=== PATIENT | female | born 1945 | race Caucasian/White ===

== ENCOUNTER 2017-07-08 09:15 | Day surgery (SDC) | payer OTHER, MEDICARE ==
[2017-07-04 14:38] VITALS: BMI 24.1
[2017-07-08] MEDS ORDERED: LIDOCAINE HCL/PF 2% SDV 5ML VIAL ONE (10:19)
[2017-07-08] MEDS ORDERED: PROPOFOL 20 ML ONE ×2 (10:19)
[2017-07-08 11:05] VITALS: TEMP 97.9
[2017-07-08 11:58] VITALS: BP 121/70; PULSE 63
--- NOTE | 2017-07-10 17:10 | PATH ---
Surgical Pathology Report Patient Name: SANGEETHA AGUIAR [facility]. Rec. #: [id number] /Age/Gender: 1945 (Age: 71) / F Account: [id number] Location: [facility]-ENDOSCOPY Taken: 07/08/2017 Received: 07/08/2017 Reported: 07/10/2017 Physicians: Gian Mclaughlin M.D. Specimen(s) Received A: DUODENUM B: ANTRUM Clinical History Preoperative diagnosis: GERD, history of polyps Postoperative diagnosis: Rule out celiac disease, gastritis Final Diagnosis A. DUODENUM, BIOPSY: DUODENAL MUCOSA WITH NO PATHOLOGIC FINDINGS. Note: Features suggestive of celiac disease are not identified in this biopsy. B. ANTRUM, BIOPSY: MODERATE CHRONIC ACTIVE GASTRITIS. IMMUNOSTAIN SHOWS NUMEROUS H. PYLORI ORGANISMS. Electronically Signed Colleen Schmidt M.D. Gross Description A. Received in formalin, labeled "duodenum" are 2 thakur, irregular portions of soft tissue averaging 0.3 cm. in greatest dimension. The specimens are submitted in toto in one cassette. B. Received in formalin, labeled "antrum" are 2 thakur, irregular portions of soft tissue averaging 0.2 cm. in greatest dimension. The specimens are submitted in toto in one cassette. 07/09/201707/09/2017
== END 2017-07-08 11:45 | disposition home or self-care (01) ==
LOC: FASU-ENDO 09:15
PROVIDERS: ATTEND Internal Medicine Gastroenterology
PROC: 0DB68ZX Excision of Stomach, Via Natural or Artificial Opening Endoscopic, Diagnostic (ICD-10-PCS; 2017-07-08)
PROC: 0DJD8ZZ Inspection of Lower Intestinal Tract, Via Natural or Artificial Opening Endoscopic (ICD-10-PCS; principal; 2017-07-08 10:18)
PROC: 0DB98ZX Excision of Duodenum, Via Natural or Artificial Opening Endoscopic, Diagnostic (ICD-10-PCS; 2017-07-08 10:18)
DX: Z86.010 Personal history of colon polyps (principal); K29.50 Unspecified chronic gastritis without bleeding
CPT/HCPCS: 88305-TC; 88342-TC

== ENCOUNTER 2019-01-18 11:20 | Emergency (ER) | payer OTHER, MEDICARE ==
[2019-01-18 11:39] VITALS: TEMP 99.6; BMI 24.1
[2019-01-18] MEDS ORDERED: ONDANSETRON 4 MG/2 ML VIAL IVPB PRN (12:38)
[2019-01-18] MEDS ORDERED: ACETAMINOPHEN 1000 MG/100 ML VIAL (NON FORMULARY) IVPB ONE (12:38)
--- NOTE | 2019-01-18 12:42 | PDOC ---
History of Present Illness - General Chief Complaint: Pain, Acute Stated Complaint: ABD PAIN Time Seen by Provider: 01/18/19 12:01 - History of Present Illness Initial Comments: 01/18/19 15:42 73y/o F hx of abdominal surgeries (hysterectomy, cholecystectomy and oopherectomy), htn, atrophic kidney, trigeminal neuralgia s/p craniotyom, sarcoidoisis, cataracts, glaucoma and basal cell carcinoma. She presents to the ED with 1mth of abdominal pain that worsened overnight in intensity. The pain is diffuse and radiates to her back and is 10/10 in severity. She couldn't identify any relieving or exacerbating factors. The pain has been accompanied by nausea and vomiting x5 or more since yesterday (non-bloody) She endorsed tenesmus, dysuria, frequency. She denies fever, chills, hematuria, diarrhea, blood in her stools. Her last bowel movement was this morning at 5a.m Past History - Past Medical History Allergies/Adverse Reactions: Allergies Allergy/AdvReac Type Severity Reaction Status Date / Time Electrolyte-R Solution Allergy Intermediate Swelling Verified 01/18/19 11:28 [From Normosol-R] codeine [Codeine] Allergy Unknown Verified 01/18/19 11:28 dexamethasone [From Decadron] Allergy Unknown Verified 01/18/19 11:28 dexamethasone sod phosphate Allergy Unknown Verified 01/18/19 11:28 [From Decadron] erythromycin base Allergy Unknown Verified 01/18/19 11:28 [Erythromycin Base] guaifenesin Allergy Unknown Verified 01/18/19 11:28 [From Robitussin Chest Congestion] Iodinated Contrast Media Allergy Unknown Verified 01/18/19 11:28 [IV Dye, Iodine Containing Contrast ] morphine Allergy Unknown Verified 01/18/19 11:28 Penicillins Allergy Unknown Verified 01/18/19 11:28 phenazopyridine HCl Allergy Unknown Verified 01/18/19 11:28 [From Pyridium] sertraline HCl [From Zoloft] Allergy Unknown Verified 01/18/19 11:28 Sulfa (Sulfonamide Allergy Unknown Verified 01/18/19 11:28 Antibiotics) [Sulfa(Sulfonamide Antibiotics)] vancomycin Allergy Unknown Verified 01/18/19 11:28 Home Medications: Ambulatory Orders Acetaminophen/Caffeine/Butalb [Fioricet] 1 tab PO Q6H PRN 11/26/12 Amlodipine Besylate [Norvasc] 10 mg PO PRN 11/26/12 Candesartan Cilexetil [Atacand] 32 mg PO DAILY 11/26/12 Cyanocobalamin Vit B-12 Inj. [Redisol] 1,000 mcg IM MONTHLY 07/04/17 Diazepam [Valium] 5 mg PO DAILY PRN 07/04/17 Levothyroxine [Synthroid -] 75 mcg PO DAILY 07/08/17 Betaxolol HCl [Betoptic S] 1 drop OD BID 01/18/19 Anemia: No (LOW B12) Asthma: No Cancer: Yes (THYROID 2014) 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) CVA: No COPD: No Dementia: No Diabetes: No GI Disorders: No (R/O HIATAL HERNIA) Disorders: Yes (HX UTIs) HTN: Yes Hypercholesterolemia: No Liver Disease: No Seizures: Yes (cancer) Thyroid Disease: Yes - Surgical History Abdominal Surgery: No Appendectomy: No Cardiac Surgery: No Cholecystectomy: Yes Lung Surgery: No Neurologic Surgery: Yes (LAMINECTOMY X2) Orthopedic Surgery: No - Immunization History Td Vaccination: Yes TDAP Vaccination: Yes Immunization Up to Date: No - Suicide/Smoking/Psychosocial Hx Smoking Status: No Smoking History: Never smoked Years of Tobacco Use: 0 Have you smoked in the past 12 months: No Number of Cigarettes Smoked Daily: 0 Cigars Per Day: 0 Information on smoking cessation initiated: No Hx Alcohol Use: No Drug/Substance Use Hx: No Substance Use Type: None Review of Systems - Review of Systems Constitutional: No: Chills, Fever HEENTM: No: Eye Pain, Blurred Vision Respiratory: No: Cough, Shortness of Breath Cardiac (ROS): No: Chest Pain, Lightheadedness ABD/GI: Yes: Symptoms Reported : Yes: Burning, Dysuria Musculoskeletal: Yes: Back Pain Integumentary: No: Change in Color, Dryness Neurological: No: Headache *Physical Exam - Vital Signs Last Vital Signs Temp Pulse Resp BP Pulse Ox 99.6 F 99 H 18 151/73 99 01/18/19 11:28 01/18/19 11:28 01/18/19 11:28 01/18/19 11:28 01/18/19 11:28 - Physical Exam Neck: positive: Trachea midline, Supple Respiratory/Chest: positive: Lungs Clear, Normal Breath Sounds. negative: Respiratory Distress, Crackles, Rales, Wheezing Cardiovascular: positive: Regular Rhythm, Regular Rate, S1, S2. negative: JVD Vascular Pulses: Dorsalis-Pedis (R): 2+, Doralis-Pedis (L): 2+ Gastrointestinal/Abdominal: positive: Normal Bowel Sounds, Flat, Soft, Tenderness, Other (tenderness diffusely across the abdomen). negative: Pulsatile Mass, Protuberent, Distended Musculoskeletal: positive: Normal Inspection. negative: CVA Tenderness Extremity: positive: Normal Capillary Refill, Normal Inspection, Normal Range of Motion Integumentary: positive: Normal Color, Dry, Warm Neurologic: positive: Fully Oriented, Alert, Normal Mood/Affect, Normal Response ED Treatment Course - LABORATORY CBC & Chemistry Diagram: 01/18/19 13:00 01/18/19 13:00 Medical Decision Making - Medical Decision Making 01/18/19 15:49 73y/o F hx of abdominal surgeries (hysterectomy, cholecystectomy and oopherectomy), htn, atrophic kidney, trigeminal neuralgia s/p craniotomy, sarcoidoisis, cataracts, glaucoma and basal cell carcinoma. Labs/Imaging Meds Elevated white count 12.2 Lipase 103 Lactate 2.2 urine 2+ ketones Pt given IV tylenol 1000mg for pain Grand daughter who accompanied pt. advised to stay with her to ensure her wellbeing and follow up with Dr. Cuevas strongly recommended. -If pt tolerates PO will discharge. - Pt tolerated PO discharged with instructions to follow up. *DC/Admit/Observation/Transfer Diagnosis at time of Disposition: Abdominal pain Qualifiers: Abdominal location: generalized Qualified Code(s): R10.84 - Generalized abdominal pain - Discharge Dispostion Disposition: HOME Condition at time of disposition: Stable Decision to Admit order: No - Referrals Referrals: Bharath Cuevas MD [Primary Care Provider] - - Patient Instructions Printed Discharge Instructions: DI for Abdominal Pain-Adult Additional Instructions: You were seen in the ER for abdominal pain. The tests and imaging we did do show any concerning findings at this time. Follow up with your primary care provider Dr. Varma tomorrow and let him know you were in the ER. RETURN TO THE EMERGENCY ROOM immediately should you feel worse in any way or have any of the following symptoms: increasing or different abdominal pain, persistent vomiting, fevers or shaking chills. Please return to the emergency department for a recheck in 8-12 hours if the pain is persistent or worse so we can re-evaluate you and ensure that you are not developing a problem that would require surgery or hospitalization. - Post Discharge Activity
[2019-01-18] MEDS ORDERED: ONDANSETRON 4 MG/2 ML VIAL ONE (12:49)
[2019-01-18] MEDS ORDERED: ACETAMINOPHEN INJECTION 100 ML IVPB ONE (12:49)
[2019-01-18 13:17] LABS: BASO % 0.5 % (0-2.0); HEMOGLOBIN 14.1 GM/dL (10.7-15.3); LYMPH % 5.6 % (8-40); MCH 31.8 pg (25.7-33.7); MCHC 34.3 g/dl (32.0-36.0); MEAN CELL VOLUME 92.7 fl (80-96); MEAN PLT VOLUME 7.8 fl (7.5-11.1); MONO % 5.2 % (3.8-10.2); NEUT % 88.7 % (42.8-82.8); PLATELET COUNT 195 K/MM3 (134-434); RBC 4.42 M/mm3 (3.60-5.2); RDW 12.9 % (11.6-15.6); WHITE BLOOD COUNT 12.2 K/mm3 (4.0-10.0)
[2019-01-18 13:19] LABS: PH,URINE 6.5 (5.0-8.0); URINE APPEARANCE Clear; URINE BILIRUBIN Negative (NEGATIVE); URINE COLOR Yellow; URINE GLUCOSE (UA) Negative (NEGATIVE); URINE KETONE Negative (NEGATIVE); URINE LEUK ESTERASE Negative (NEGATIVE); URINE NITRITE Negative (NEGATIVE); URINE PROTEIN Trace (NEGATIVE); URINE UROBILINOGEN 0.2 mg/dL (0.2-1.0)
[2019-01-18 13:55] LABS: ALBUMIN 4.5 g/dl (3.4-5.0); BILIRUBIN,TOTAL 0.8 mg/dL (0.2-1); BLOOD UREA NITROGEN 11.5 mg/dL (7-18); CALCIUM 8.2 mg/dL (8.5-10.1); CREATININE 0.8 mg/dL (0.55-1.3); POTASSIUM 3.6 mmol/L (3.5-5.1); TOT PROT 7.6 g/dl (6.4-8.2)
--- NOTE | 2019-01-18 14:18 | PDOC ---
Documentation entered by Julissa Herrera SCRIBE, acting as scribe for Bozena Griffin MD. Bozena Griffin MD: This documentation has been prepared by the Javier arce Nirvannie, SCRIBE, under my direction and personally reviewed by me in its entirety. I confirm that the documentation accurately reflects all work, treatment, procedures, and medical decision making performed by me. Attending Attestation - Resident Resident Name: ZackaryShashank - ED Attending Attestation I have performed the following: I have examined & evaluated the patient, The case was reviewed & discussed with the resident, I agree w/resident's findings & plan, Exceptions are as noted - HPI HPI: 01/18/19 12:56 The patient is a 73 year old female, with a significant past medical history of HTN, anemia, atrophic kidney, trigeminal neuralgia (s/p craniotomy 2005), sarcoidosis, cataracts, glaucoma, and basal cell (face), who presents to the emergency department with, worsening, constant abdominal pain. As per patient, her symptoms have been ongoing for the past month and acutely worsened today. She describes her pain diffuse and worsened in the epigastrum with an associated nausea and approximately 4 episodes of bilious, nonbloody emesis. Patient endorses greater than one month of dysuria and urinary frequency which is normally alleviated with unknown antibiotics but, reoccurs shortly after the course of treatment has concluded. She denies recent chest pain or shortness of breath. Allergies: As per nursing notes. Past surgical history: Hysterectomy, cholecystectomy, laminectomy, oophorectomy , craniotomy (2005), thyroid surgery. Primary Care Physician: Dr. Cuevas - Physicial Exam PE: 01/18/19 12:56 GENERAL: Awake, alert, and fully oriented, in no acute distress HEAD: No signs of trauma NECK: Normal ROM, supple, no lymphadenopathy, JVD, or masses LUNGS: Breath sounds equal, clear to auscultation bilaterally. No wheezes, and no crackles HEART: Regular rate and rhythm, normal S1 and S2, no murmurs, rubs or gallops ABDOMEN: +Epigastric guarding. Soft, normoactive bowel sounds. No rebound. No masses BACK: +Left CVA tenderness. EXTREMITIES: Normal range of motion, no edema. No clubbing or cyanosis. No cords, erythema, or tenderness NEUROLOGICAL: Cranial nerves II through XII grossly intact. Normal speech SKIN: Warm, Dry, normal turgor, no rashes or lesions noted. - Medical Decision Making 01/18/19 13:49 Pt presents to the ED complaining of diffuse abdominal pain, dysuria, nausea and vomiting. + diffuse tenderness with slight guarding and no rebound. Differential includes pyelonephritis, diverticulitis, less likely mesenteric ischemia, less likely intraabdominal abscess. Will check labs, UA and CT abdomen pelvis to rule out
[2019-01-18] MEDS ORDERED: KETOROLAC TROMETHAMINE 15 MG/ML VIAL IVPUSH ONE (15:15)
[2019-01-18] MEDS ORDERED: KETOROLAC TROMETHAMINE 15 MG/ML VIAL ONE (15:23)
[2019-01-18 16:24] VITALS: BP 109/74; PULSE 94
--- NOTE | 2019-01-19 06:45 | EKG ---
Test Reason : Blood Pressure : / mmHG Vent. Rate : 090 BPM Atrial Rate : 090 BPM P-R Int : 156 ms QRS Dur : 086 ms QT Int : 390 ms P-R-T Axes : 006 003 036 degrees QTc Int : 477 ms SINUS RHYTHM WITH PREMATURE ATRIAL COMPLEXES OTHERWISE NORMAL ECG WHEN COMPARED WITH ECG OF 11-JUL-2015 15:45, PREMATURE ATRIAL COMPLEXES ARE NOW PRESENT Confirmed by STANLEY CORDOBA, FABIO ([id number]) on 01/19/2019 6:45:09 AM Referred By: Confirmed By:FABIO ANGEL MD
== END 2019-01-18 16:23 | disposition home or self-care (01) ==
LOC: JER 11:20
PROC: 3E033NZ Introduction of Analgesics, Hypnotics, Sedatives into Peripheral Vein, Percutaneous Approach (ICD-10-PCS; principal; 2019-01-18)
DX: R10.84 Generalized abdominal pain (principal); I10 Essential (primary) hypertension; H40.9 Unspecified glaucoma; Z85.850 Personal history of malignant neoplasm of thyroid; Z87.440 Personal history of urinary (tract) infections; Z88.0 Allergy status to penicillin; Z88.1 Allergy status to other antibiotic agents; Z88.2 Allergy status to sulfonamides; Z88.8 Allergy status to other drugs, medicaments and biological substances
CPT/HCPCS: 36415; 74176-TC; 80053; 81003; 83605; 83690; 85025; 87086; 93005; 93010; 96374; 99284-25; J0131

== ENCOUNTER 2020-02-08 17:24 | Emergency (ER) | payer OTHER, MEDICARE ==
[2020-02-08 17:41] VITALS: TEMP 98; BMI 24.9
[2020-02-08] MEDS ORDERED: ACETAMINOPHEN 500 MG TABLET (FP) PO ONE (17:46)
--- NOTE | 2020-02-08 17:49 | PDOC ---
History of Present Illness - General Chief Complaint: Pain, Acute Stated Complaint: fall Time Seen by Provider: 02/08/20 17:37 History Source: Patient Exam Limitations: No Limitations - History of Present Illness Initial Comments: 02/08/20 17:49 74y F with PMH of HTN, Hypothyroidism, Lumbar disc laminectomy presenting to the ER with L hip/buttock pain after slipping down 2 steps at home. Daughter at bedside states that patient was almost down the stairs and she heard the fall, turned around and saw patient sitting on the floor. Pt states that her socks slipped on the wooden steps, she slid sideways and had pain in the L hip/buttock. She has been ambulatory since the fall but has difficulty changing positions due to the pain. Denies LOC, hitting her head, neck pain, back pain, chest pain, abdominal pain, n/v, numbness, weakness. She is not on AC. PMD: Faith PMH: see hpi PSH: see hpi Meds: see med list Allergies: see allergy list Past History - Medical History Allergies/Adverse Reactions: Allergies Allergy/AdvReac Type Severity Reaction Status Date / Time Electrolyte-R Solution Allergy Intermediate Swelling Verified 02/08/20 17:25 [From Normosol-R] codeine [Codeine] Allergy Unknown Verified 02/08/20 17:25 dexamethasone [From Decadron] Allergy Unknown Verified 02/08/20 17:25 dexamethasone sod phosphate Allergy Unknown Verified 02/08/20 17:25 [From Decadron] erythromycin base Allergy Unknown Verified 02/08/20 17:25 [Erythromycin Base] guaifenesin Allergy Unknown Verified 02/08/20 17:25 [From Robitussin Chest Congestion] Iodinated Contrast Media Allergy Unknown Verified 02/08/20 17:25 [IV Dye, Iodine Containing Contrast ] morphine Allergy Unknown Verified 02/08/20 17:25 Penicillins Allergy Unknown Verified 02/08/20 17:25 phenazopyridine HCl Allergy Unknown Verified 02/08/20 17:25 [From Pyridium] sertraline HCl [From Zoloft] Allergy Unknown Verified 02/08/20 17:25 Sulfa (Sulfonamide Allergy Unknown Verified 02/08/20 17:25 Antibiotics) [Sulfa(Sulfonamide Antibiotics)] vancomycin Allergy Unknown Verified 02/08/20 17:25 Home Medications: Ambulatory Orders Acetaminophen/Caffeine/Butalb [Fioricet] 1 tab PO Q6H PRN 11/26/12 Amlodipine Besylate [Norvasc] 10 mg PO PRN 11/26/12 Candesartan Cilexetil [Atacand] 32 mg PO DAILY 11/26/12 Cyanocobalamin Vit B-12 Inj. [Redisol] 1,000 mcg IM MONTHLY 07/04/17 Diazepam [Valium] 5 mg PO DAILY PRN 07/04/17 Levothyroxine [Synthroid -] 75 mcg PO DAILY 07/08/17 Betaxolol HCl [Betoptic S] 1 drop OD BID 01/18/19 Anemia: No (LOW B12) Asthma: No Cancer: Yes (THYROID 2014) 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) CVA: No COPD: No Dementia: No Diabetes: No GI Disorders: No (R/O HIATAL HERNIA) Disorders: Yes (HX UTIs) HTN: Yes Hypercholesterolemia: No Liver Disease: No Seizures: Yes (cancer) Thyroid Disease: Yes - Surgical History Abdominal Surgery: No Appendectomy: No Cardiac Surgery: No Cholecystectomy: Yes Lung Surgery: No Neurologic Surgery: Yes (LAMINECTOMY X2) Orthopedic Surgery: No - Reproductive History Is Patient Now?: No - Immunization History Td Vaccination: Yes TDAP Vaccination: Yes Immunization Up to Date: No - Psycho-Social/Smoking History Smoking Status: No Smoking History: Never smoked Years of Tobacco Use: 0 Have you smoked in the past 12 months: No Number of Cigarettes Smoked Daily: 0 Cigars Per Day: 0 - Substance Abuse Hx (Audit-C & DAST Scrn) How often the patient has a drink containing alcohol: Never Score: In Men: 4 or > Positive; In Women: 3 or > Positive: 0 Screen Result (Pos requires Nsg. Audit-10AR): Negative In the last yr the pt used illegal drug/Rx for NonMed reason: No Score: Yes response is considered Positive: 0 Screen Result (Positive result requires Nsg. DAST-10): Negative Review of Systems - Review of Systems Constitutional: No: Symptoms Reported HEENTM: No: Symptoms Reported Respiratory: No: Symptoms reported Cardiac (ROS): No: Symptoms Reported ABD/GI: No: Symptoms Reported : No: Symptoms Reported Musculoskeletal: Yes: See HPI Integumentary: No: Symptoms Reported Neurological: No: Symptoms reported *Physical Exam - Vital Signs Last Vital Signs Temp Pulse Resp BP Pulse Ox 98 F 76 19 188/84 H 100 02/08/20 17:25 02/08/20 17:25 02/08/20 17:25 02/08/20 17:25 02/08/20 17:25 - Physical Exam General Appearance: Yes: Nourished, Appropriately Dressed. No: Apparent Distress HEENT: positive: EOMI, LILLIAN Neck: positive: Trachea midline, Supple Respiratory/Chest: positive: Lungs Clear, Normal Breath Sounds. negative: Chest Tender, Labored Respiration, Rales, Rhonchi, Stridor, Wheezing Cardiovascular: positive: Regular Rhythm, Regular Rate, S1, S2. negative: Edema, JVD, Murmur Vascular Pulses: Dorsalis-Pedis (R): 2+, Doralis-Pedis (L): 2+ Gastrointestinal/Abdominal: positive: Normal Bowel Sounds, Soft. negative: Tender, Guarding, Rebound Musculoskeletal: positive: Muscle Spasm, Other (sacral tenderness, L inguinal tenderness and lateral thigh tenderness ). negative: CVA Tenderness, Decreased Range of Motion, Vertebral Tenderness Extremity: positive: Normal Capillary Refill, Normal Range of Motion, Pelvis Stable. negative: Pedal Edema, Swelling, Calf Tenderness Integumentary: positive: Normal Color, Dry, Warm Neurologic: positive: tobacco hanger II-XII NML intact, Fully Oriented, Alert, Normal Mood/Affect, Normal Response, Motor Strength 5/5 ED Treatment Course - RADIOLOGY Radiology Studies Ordered: Category Date Time Status HIP & PELVIS-LEFT [RAD] Stat Radiology 02/08/20 17:45 Ordered Medical Decision Making - Medical Decision Making 02/08/20 17:53 74y F with pmh of htn, hypothyroidism, laminectomy presenting to the ER for slip and fall with L hip/buttock pain. vitals: hypertensive otherwise wnl pe: L hip tenderness, decreased rom 2/2 pain, full sensation, full strength. no lacerations, no spinal tenderness, normal neurological exam. ddx includes hip fracture, dislocation, sprain, coccyx injury, sacral injury. pt does not require head or c spine ct at this time given no loc or head injury, pt is able to recall event, no syncope, no lacerations, not on ac, normal neurological exam. -xray of pelvis and hip. 02/08/20 18:42 pt is ambulatory. no fractures on xray per my read, arthiritic changes. will dc pt home, given dc instructions, advised to f/u with pmd. pt lives alone but can stay with her daughter. return precautions provided. Discharge - Discharge Information Problems reviewed: Yes Clinical Impression/Diagnosis: Fall (on) (from) other stairs and steps, initial encounter Condition: Good Disposition: HOME - Admission No - Follow up/Referral Referrals: Bharath Cuevas MD [Primary Care Provider] - - Patient Discharge Instructions Additional Instructions: You were seen in the ER today for a slip from the stairs. You do not have a fracture. I recommend Tylenol for the pain, you can take up to 1,000mg every 6 hours (4 times a day ) as needed for the pain. do not take more than 4,000mg in a day. You can also do a warm towel or heating pad for the pain. Try to start moving early as tolerated. Please follow up with your doctor this week in regards to your ED visit. Come back to the ER if the pain worsens, you have problems with urination, have numbness in the legs or weakness of the legs, you are unable to walk or if any new or concerning symptom develops. Thank you - Post Discharge Activity
[2020-02-08] MEDS ORDERED: ACETAMINOPHEN 500 MG TABLET (FP) ONE (17:58)
--- NOTE | 2020-02-08 18:09 | PDOC ---
Attending Attestation - Resident Resident Name: Perlita Moore - ED Attending Attestation I have performed the following: I have examined & evaluated the patient, The case was reviewed & discussed with the resident, I agree w/resident's findings & plan, Exceptions are as noted - HPI HPI: 02/08/20 18:03 74 yo F p/w L hip and buttocks pain s/p mechanical slip and fall down 2 stairs shortly before arrival. States she was walking down the stairs in socks and she slipped down 2 stairs landing on her L buttocks. Her daughter was walking in front of her and heard her and tried to grab her and prevent her from sliding down more stairs. Patient denies head trauma or LOC. Denies any other injuries or complaints. Not on any a/c. - Physicial Exam PE: 02/08/20 18:05 General: well appearing HEENT: NCAT, no racoon eyes, no davis sign Neck: supple, FROM, no midline tenderness Back: no midline or paraspinal tenderness Extremities: mild L hip/L lateral low back ttp, FROM, strength 5/5 LE's Neuro: awake, alert, responds to questions appropriately, speech fluent, face symmetric, gait steady - Medical Decision Making 02/08/20 18:07 74 yo F p/w L hip/buttocks pain s/p mechanical slip and slide down 2 stairs, ambulatory but with some discomfort. Likely contusion/sprain however given age will get xray to r/o fx. Plan: -xray pelvis/L hip -pain control -reassess, if imaging unremarkable will d/c home with return precautions, recommend tylenol at home as needed for pain and PMD f/u This clinical encounter is taking place during a federal and state health care emergency attributable to the novel Velez Virus pandemic. The [employer] of the Department of Health and Human Services has declared, pursuant to the Public Health Service Act 319F-3 (42 U.S.C. 247d-6d), that a covered persons activities related to medical countermeasures against COVID-19 will be immune from liability under Federal and State law. Discharge - Discharge Information Problems reviewed: Yes Clinical Impression/Diagnosis: Fall (on) (from) other stairs and steps, initial encounter Condition: Stable - Follow up/Referral Referrals: Bharath Cuevas MD [Primary Care Provider] - - Patient Discharge Instructions - Post Discharge Activity
[2020-02-08 18:43] VITALS: BP 170/90; PULSE 64
== END 2020-02-08 18:50 | disposition home or self-care (01) ==
LOC: FER 17:24
DX: M25.552 Pain in left hip (principal)
CPT/HCPCS: 73523-TC-FY; 99284-25

== ENCOUNTER 2020-03-11 17:37 | Emergency (ER) | payer OTHER, MEDICARE ==
--- NOTE | 2020-03-11 18:25 | PDOC ---
History of Present Illness - General Chief Complaint: Pain, Acute Stated Complaint: RIGHT FLANK PAIN Time Seen by Provider: 03/11/20 18:25 History Source: Patient Exam Limitations: No Limitations - History of Present Illness Initial Comments: 03/11/20 18:33 [id number] with h/o multiple UTI, multiple kidney stones, cholecystectomy, appendectomy, HTN, anemia, atrophic kidney, thyroid cancer s/p thyroidectomy, trigeminal neuralgia (s/p craniotomy 2005), sarcoidosis, cataracts, glaucoma, and basal cell carcinoma of the face, who p/w right flank pain on the same side as her existing kidney, radiating to the RLQ. She notes dysuria. Denies f/c/n/v/d/c, black/bloody stool, hematuria, or other symptoms. Past History - Medical History Allergies/Adverse Reactions: Allergies Allergy/AdvReac Type Severity Reaction Status Date / Time Electrolyte-R Solution Allergy Intermediate Swelling Verified 03/11/20 18:33 [From Normosol-R] codeine [Codeine] Allergy Unknown Verified 03/11/20 18:33 dexamethasone [From Decadron] Allergy Unknown Verified 03/11/20 18:33 dexamethasone sod phosphate Allergy Unknown Verified 03/11/20 18:33 [From Decadron] erythromycin base Allergy Unknown Verified 03/11/20 18:33 [Erythromycin Base] guaifenesin Allergy Unknown Verified 03/11/20 18:33 [From Robitussin Chest Congestion] Iodinated Contrast Media Allergy Unknown Verified 03/11/20 18:33 [IV Dye, Iodine Containing Contrast ] morphine Allergy Unknown Verified 03/11/20 18:33 Penicillins Allergy Unknown Verified 03/11/20 18:33 phenazopyridine HCl Allergy Unknown Verified 03/11/20 18:33 [From Pyridium] sertraline HCl [From Zoloft] Allergy Unknown Verified 03/11/20 18:33 Sulfa (Sulfonamide Allergy Unknown Verified 03/11/20 18:33 Antibiotics) [Sulfa(Sulfonamide Antibiotics)] vancomycin Allergy Unknown Verified 03/11/20 18:33 fluorescein Allergy Verified 03/11/20 18:35 iodine Allergy Verified 03/11/20 18:33 Home Medications: Ambulatory Orders Acetaminophen/Caffeine/Butalb [Fioricet] 1 tab PO Q6H PRN 11/26/12 Amlodipine Besylate [Norvasc] 10 mg PO PRN 11/26/12 Candesartan Cilexetil [Atacand] 32 mg PO DAILY 11/26/12 Levothyroxine [Synthroid -] 75 mcg PO DAILY 07/08/17 Anemia: No (LOW B12) Asthma: No Cancer: Yes (THYROID 2014) 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) CVA: No COPD: No Dementia: No Diabetes: No GI Disorders: No (R/O HIATAL HERNIA) Disorders: Yes (HX UTIs) HTN: Yes Hypercholesterolemia: No Liver Disease: No Seizures: Yes (cancer) Thyroid Disease: Yes - Surgical History Abdominal Surgery: No Appendectomy: No Cardiac Surgery: No Cholecystectomy: Yes Lung Surgery: No Neurologic Surgery: Yes (LAMINECTOMY X2) Orthopedic Surgery: No - Immunization History Td Vaccination: Yes TDAP Vaccination: Yes Immunization Up to Date: No - Psycho-Social/Smoking History Smoking Status: No Smoking History: Never smoked Years of Tobacco Use: 0 Have you smoked in the past 12 months: No Number of Cigarettes Smoked Daily: 0 Cigars Per Day: 0 Review of Systems - Review of Systems Able to Perform ROS?: Yes Comments:: GEN: no fever, chills, malaise, or generalized weakness HEENT: no ear pain, congestion, sore throat, vision change, or eye pain CV: no chest pain, palpitations, lightheadedness, syncope, or edema RESP: no SOB, wheezing, or cough GI: no abdominal pain, nausea, vomiting, diarrhea, constipation, or rectal bleed : +right flank pain, no dysuria, hematuria, or discharge MSK: no muscle weakness or pain, no joint swelling or pain NEURO: no headache, vertigo, numbness, tingling, or focal weakness PSYCH: no SI, HI, or behavior change SKIN: no jaundice, rash, lesions, or unexplained bruises ROS otherwise negative except as noted in HPI *Physical Exam - Vital Signs Initial Vital Signs Temp Pulse Resp BP Pulse Ox 98.8 F 68 17 159/80 97 03/11/20 17:38 03/11/20 17:38 03/11/20 17:38 03/11/20 17:38 03/11/20 17:38 - Physical Exam GENERAL: well-appearing, A/Ox4, no distress, answers questions appropriately HEENT: PERRLA, EOMI, moist mucous membranes NECK/BACK: no midline ttp, no spinal step-off or deformity, no hematoma, full ROM, neck supple CARDIOVASCULAR: regular rate/rhythm, no MGR, strong peripheral pulses, capillary refill <2 seconds, extremities wwp, no edema LUNGS/RESPIRATORY: no respiratory distress, CTAB GI/ABDOMEN: symmetric [id number], normoactive BS, soft, no ttp, no midline pulsatile masses : minimal right CVA tenderness, no left CVA tenderness MSK/EXTREMITIES: no muscle atrophy, no acute deformity SKIN: warm and dry, no pallor, no jaundice, no rash, no pathologic-appearing bruising, no skin breakdown, no cuts, no lesions NEUROLOGICAL: GCS 15, CN II-XII grossly intact, 5/5 strength proximally and distally, no facial droop Heart Score/ECG Review #1 Sinus rhythm, rate 66, normal axis and intervals (QTc not grossly prolonged), no ST-T changes ED Treatment Course - LABORATORY CBC & Chemistry Diagram: 03/11/20 18:38 03/11/20 18:32 - ADDITIONAL ORDERS Additional order review: Laboratory Results 03/11/20 17:49 Urine Color Yellow Urine Appearance Clear Urine pH 5.5 Urine Protein Negative Urine Glucose (UA) Negative Urine Ketones Negative Urine Blood 1+ H Urine Nitrite Negative Urine Bilirubin Negative Urine Urobilinogen 0.2 Ur Leukocyte Esterase Negative Medical Decision Making - Medical Decision Making 03/14/20 10:05 [id number] with left nephrectomy, multiple prior UTI, multiple prior renal stones, who p/w right flank pain. Initial Vital Signs Temp Pulse Resp BP Pulse Ox 98.8 F 68 17 159/80 97 03/11/20 17:38 03/11/20 17:38 03/11/20 17:38 03/11/20 17:38 03/11/20 17:38 Most likely right renal stone, UTI, or pyelonephritis. Patient had appendectomy and cholecystectomy previously. Unlikely SBO as patient has been having BMs (reports they're normal). Possible MSK strain/sprain injury, less likely nerve impingement. Provider Orders Category Date Time Status SPIRAL- RENAL-STONE CT [CT] Stat CT Scan 03/11/20 18:31 Completed EKG [ELECTROCARDIOGRAM] [CARD] Stat Cardiology 03/11/20 18:31 Completed EKG needed NOW Care 03/11/20 18:31 Completed CBC WITH DIFFERENTIAL Stat Lab 03/11/20 18:38 Completed COMP METABOLIC PANEL Stat Lab 03/11/20 18:32 Completed MAGNESIUM Stat Lab 03/11/20 18:32 Completed TROPONIN I (DFP) Stat Lab 03/11/20 18:32 Completed UA ([facility] ONLY) Stat Lab 03/11/20 17:49 Completed URINE MICROSCOPIC (DILIP) Stat Lab 03/11/20 17:49 Completed Lab Results WBC 4.9 K/mm3 (4.0-10.8) 03/11/20 18:38 RBC 4.11 M/mm3 (3.60-5.2) 03/11/20 18:38 Hgb 12.9 GM/dl (10.7-15.3) 03/11/20 18:38 Hct 40.0 % (32.4-45.2) 03/11/20 18:38 MCV 97.4 fl (80-96) H 03/11/20 18:38 MCH 31.4 pg (25.7-33.7) 03/11/20 18:38 MCHC 32.2 g/dl (32.0-36.0) 03/11/20 18:38 RDW 12.9 % (11.6-15.6) 03/11/20 18:38 Plt Count 223 K/MM3 (134-434) 03/11/20 18:38 MPV 7.4 fl (7.5-11.1) L 03/11/20 18:38 Absolute Neuts (auto) 2.4 K/mm3 03/11/20 18:38 Neutrophils % 48.6 % (42.8-82.8) 03/11/20 18:38 Lymphocytes % 42.4 % (8-40) H 03/11/20 18:38 Monocytes % 7.5 % (3.8-10.2) 03/11/20 18:38 Eosinophils % 0.7 % (0-4.5) 03/11/20 18:38 Basophils % 0.8 % (0-2.0) 03/11/20 18:38 Sodium 132 mmol/L (136-145) L 03/11/20 18:32 Potassium 3.8 mmol/L (3.5-5.1) 10/09/20 18:32 Chloride 94 mmol/L (98-107) L 03/11/20 18:32 Carbon Dioxide 28 mmol/L (21-32) 03/11/20 18:32 Anion Gap 10 MMOL/L (8-16) 03/11/20 18:32 BUN 8.0 mg/dl (7-18) 03/11/20 18:32 Creatinine 0.7 mg/dl (0.55-1.3) 03/11/20 18:32 Est GFR (CKD-EPI)AfAm 97.54 03/11/20 18:32 Est GFR (CKD-EPI)NonAf 84.16 03/11/20 18:32 Random Glucose 97 mg/dl (74-106) 03/11/20 18:32 Calcium 7.4 mg/dl (8.5-10) L 03/11/20 18:32 Magnesium 2.1 mg/dL (1.8-2.4) 03/11/20 18:32 Total Bilirubin 0.6 mg/dl (0.2-1) 03/11/20 18:32 AST 26 U/L (15-37) 03/11/20 18:32 ALT 23 U/L (13-61) 03/11/20 18:32 Alkaline Phosphatase 92 U/L (45-117) 03/11/20 18:32 Troponin I < 0.03 ng/ml (0.00-0.05) 03/11/20 18:32 Total Protein 6.7 g/dl (6.4-8.2) 03/11/20 18:32 Albumin 4.5 g/dl (3.4-5.0) 03/11/20 18:32 Urine Color Yellow 03/11/20 17:49 Urine Appearance Clear 03/11/20 17:49 Urine pH 5.5 (4.5-8) 03/11/20 17:49 Urine Protein Negative (NEGATIVE) 03/11/20 17:49 Urine Glucose (UA) Negative (NEGATIVE) 03/11/20 17:49 Urine Ketones Negative (NEGATIVE) 03/11/20 17:49 Urine Blood 1+ (NEGATIVE) H 03/11/20 17:49 Urine Nitrite Negative (NEGATIVE) 03/11/20 17:49 Urine Bilirubin Negative (NEGATIVE) 03/11/20 17:49 Urine Urobilinogen 0.2 (0.2-1.0) 03/11/20 17:49 Ur Leukocyte Esterase Negative (NEGATIVE) 03/11/20 17:49 Urine RBC 5-10 /hpf (0-4) 03/11/20 17:49 Urine WBC 0-2 (NEGATIVE) 03/11/20 17:49 Ur Transition Epith Cell Few /hpf 03/11/20 17:49 Urine Bacteria Few /hpf (NEGATIVE) 03/11/20 17:49 CT/SPIRAL- RENAL-STONE CT Renal stone CT without contrast Clinical information: flank pain Multiplanar imaging was performed. No intravenous or enteric contrast was administered. Status post left nephrectomy as on a previous CT exam of 01/18/2019. Note is again made of mild postsurgical left flank wall bulging. There is no right hydroureteronephrosis. No definite right renal, ureteral or urinary bladder calculus is visualized. There is no gross urinary tract mass lesion on noncontrast imaging. Status post cholecystectomy as on the previous exam. The common bile duct is mildly dilated with a 1 cm diameter. The degree of dilatation appears slightly increased since the previous exam. No gross intraductal calculus is identified within the limitations of CT. The liver, spleen, pancreas, and adrenal glands demonstrate no discrete noncontrast pathology. There is no aortic aneurysm. No definite lymphadenopathy is noted on the basis of CT size criteria. No evidence of pneumoperitoneum, free intraperitoneal fluid or bowel obstruction. The appendix is not definitely visualized however no indirect CT signs of acute appendicitis are noted. No CT evidence of acute diverticulitis or obvious acute colitis. There is no gross noncontrast small bowel pathology. Note is again made of mild curvilinear soft tissue scarring adjacent to the ventral lateral aspect of the urinary bladder which may be on a postsurgical basis. No obvious acute osseous abnormality is identified. Impression: Status post left nephrectomy as on a previous CT exam of 01/18/2019. Also as on the prior CT exam there is no evidence of right hydronephrosis or urolithiasis. Status post cholecystectomy as on the previous exam. Interval slightly increased nonspecific common bile duct dilatation is noted with a current diameter of 1 cm, previously 0.8 cm. This could be on a postsurgical physiologic basis. Clinical/laboratory correlation is suggested. MRI/MRCP evaluation may be considered, nonemergent unless otherwise clinically indicated. Patient's care endorsed to Dr. Moran at the end of my shift pending remaining workup and reassessment. Discharge - Discharge Information Problems reviewed: Yes Clinical Impression/Diagnosis: Flank pain Condition: Stable Disposition: HOME - Admission No - Follow up/Referral - Patient Discharge Instructions Additional Instructions: Tylenol as needed for pain. Return to the emergency department immediately with ANY new, persistent or worsening symptoms. Continue any medications as previously prescribed by your physician. You should follow up with your primary doctor as soon as possible regarding jose carlosarnold travis's emergency department visit. . Please make sure your doctor reviews the results of your emergency evaluation. Thank you for coming to the Emergency Department today for your care. It was a pleasure to see you today. Please note that your evaluation is INCOMPLETE until you follow-up with your doctor. - Post Discharge Activity
[2020-03-11 18:29] VITALS: BP 159/80; PULSE 68; TEMP 98.8; BMI 24.5
[2020-03-11 18:32] LABS: EPITHELIAL CELLS FEW /hpf
[2020-03-11 19:01] LABS: BASO % 0.8 % (0-2.0); EOS % 0.7 % (0-4.5); HEMOGLOBIN 12.9 GM/dl (10.7-15.3); LYMPH % 42.4 % (8-40); MCH 31.4 pg (25.7-33.7); MCHC 32.2 g/dl (32.0-36.0); MEAN CELL VOLUME 97.4 fl (80-96); MEAN PLT VOLUME 7.4 fl (7.5-11.1); MONO % 7.5 % (3.8-10.2); NEUT % 48.6 % (42.8-82.8); PLATELET COUNT 223 K/MM3 (134-434); RBC 4.11 M/mm3 (3.60-5.2); RDW 12.9 % (11.6-15.6); WHITE BLOOD COUNT 4.9 K/mm3 (4.0-10.8)
[2020-03-11 19:12] LABS: ALBUMIN 4.5 g/dl (3.4-5.0); BILIRUBIN,TOTAL 0.6 mg/dl (0.2-1); CALCIUM 7.4 mg/dl (8.5-10); CREATININE 0.7 mg/dl (0.55-1.3); MAGNESIUM 2.1 mg/dL (1.8-2.4); POTASSIUM 3.8 mmol/L (3.5-5.1); TOT PROT 6.7 g/dl (6.4-8.2)
--- NOTE | 2020-03-11 19:58 | PDOC ---
*Physical Exam - Vital Signs Last Vital Signs Temp Pulse Resp BP Pulse Ox 98.8 F 68 17 159/80 97 03/11/20 17:38 03/11/20 17:38 03/11/20 17:38 03/11/20 17:38 03/11/20 17:38 ED Treatment Course - LABORATORY CBC & Chemistry Diagram: 03/11/20 18:38 03/11/20 18:32 - ADDITIONAL ORDERS Additional order review: Laboratory Results 03/11/20 03/11/20 03/11/20 18:32 18:32 17:49 Sodium 132 L Potassium 3.8 Chloride 94 L Carbon Dioxide 28 Anion Gap 10 BUN 8.0 Creatinine 0.7 Est GFR (CKD-EPI)AfAm 97.54 Est GFR (CKD-EPI)NonAf 84.16 Random Glucose 97 Calcium 7.4 L Magnesium 2.1 Total Bilirubin 0.6 AST 26 ALT 23 Alkaline Phosphatase 92 Troponin I < 0.03 Total Protein 6.7 Albumin 4.5 Urine Color Yellow Urine Appearance Clear Urine pH 5.5 Urine Protein Negative Urine Glucose (UA) Negative Urine Ketones Negative Urine Blood 1+ H Urine Nitrite Negative Urine Bilirubin Negative Urine Urobilinogen 0.2 Ur Leukocyte Esterase Negative Urine RBC 5-10 Urine WBC 0-2 Ur Transition Epith Cell Few Urine Bacteria Few 03/11/20 18:38 RBC 4.11 MCV 97.4 H MCHC 32.2 RDW 12.9 MPV 7.4 L Neutrophils % 48.6 Lymphocytes % 42.4 H Monocytes % 7.5 Eosinophils % 0.7 Basophils % 0.8 ED Progress Note - Progress Note Progress Note: 03/11/20 19:56 Patient was transferred to de from Dr. Granado at 1900 hrs. Patient has a CAT scan pending if CAT scan is normal patient will be discharged. Discharge - Discharge Information Problems reviewed: Yes Clinical Impression/Diagnosis: Flank pain Condition: Stable Disposition: HOME - Admission No - Follow up/Referral - Patient Discharge Instructions Additional Instructions: Tylenol as needed for pain. Return to the emergency department immediately with ANY new, persistent or worsening symptoms. Continue any medications as previously prescribed by your physician. You should follow up with your primary doctor as soon as possible regarding today's emergency department visit. . Please make sure your doctor reviews the results of your emergency evaluation. Thank you for coming to the Emergency Department today for your care. It was a pleasure to see you today. Please note that your evaluation is INCOMPLETE until you follow-up with your doctor. - Post Discharge Activity
--- NOTE | 2020-03-13 07:09 | EKG ---
Test Reason : Blood Pressure : / mmHG Vent. Rate : 066 BPM Atrial Rate : 066 BPM P-R Int : 182 ms QRS Dur : 084 ms QT Int : 462 ms P-R-T Axes : 046 -02 019 degrees QTc Int : 484 ms NORMAL SINUS RHYTHM NONSPECIFIC T WAVE ABNORMALITY ABNORMAL ECG WHEN COMPARED WITH ECG OF 18-JAN-2019 13:06, PREMATURE ATRIAL COMPLEXES ARE NO LONGER PRESENT Confirmed by ANTHONY CORDOBA, JULIANE ([id number]) on 03/13/2020 7:08:32 AM Referred By: MD FOURNIER Confirmed By:JULIANE CRUZ MD
== END 2020-03-11 20:19 | disposition home or self-care (01) ==
LOC: FER 17:37
DX: R10.9 Unspecified abdominal pain (principal)
CPT/HCPCS: 36415; 74176-TC; 80053; 81003; 81015; 83735; 84484; 85025; 93005; 99285-25

== ENCOUNTER 2022-02-17 16:17 | Emergency (ER) | payer OTHER, MEDICARE ==
[2022-02-17 16:55] VITALS: BP 140/82; PULSE 71; RESP 20; TEMP 98.3; BMI 25.4
[2022-02-17] MEDS ORDERED: ACETAMINOPHEN 325 MG TABLET (FP) PO ONE (17:14)
[2022-02-17] MEDS ORDERED: ACETAMINOPHEN 325 MG TABLET (FP) ONE (17:45)
== END 2022-02-17 18:01 | disposition left against medical advice (07) ==
LOC: FER 16:17
DX: M25.511 Pain in right shoulder (principal); M25.561 Pain in right knee; W19.XXXA Unspecified fall, initial encounter
CPT/HCPCS: 73030-TC-RT-FY; 73562-TC-LT-FY; 73562-TC-RT-FY; 73610-TC-RT-FY; 73630-TC-RT-FY; 99284-25

== ENCOUNTER 2022-07-27 10:41 | Emergency (ER) | payer OTHER, MEDICARE ==
[2022-07-27 10:53] VITALS: BP 188/72; PULSE 73; RESP 18; TEMP 98; BMI 24.1
[2022-07-27] MEDS ORDERED: ASPIRIN 81 MG CHEWABLE TABLETS PO ONE (11:38)
[2022-07-27] MEDS ORDERED: ASPIRIN 81 MG CHEWABLE TABLETS ONE (12:04)
[2022-07-27 12:43] LABS: BASO % 0.6 % (0-2.0); EOS % 0.1 % (0-4.5); HEMATOCRIT 39.9 % (32.4-45.2); HEMOGLOBIN 13.6 GM/dL (10.7-15.3); LYMPH % 29.8 % (8-40); MCH 32.5 pg (25.7-33.7); MCHC 34.1 g/dl (32.0-36.0); MEAN CELL VOLUME 95.2 fl (80-96); MEAN PLT VOLUME 8.2 fl (7.5-11.1); MONO % 5.7 % (3.8-10.2); NEUT % 63.8 % (42.8-82.8); PLATELET COUNT 196 10^3/uL (134-434); RDW 12.7 % (11.6-15.6); WHITE BLOOD COUNT 4.1 K/mm3 (4.0-10.0)
[2022-07-27 12:45] LABS: EPI CELLS 3 /uL (0-25.1); HYALINE CASTS 0 /uL (0-3.1); URINE APPEARANCE CLEAR; URINE BACTERIA 8 /uL (0-1359); URINE BILIRUBIN NEGATIVE (NEGATIVE); URINE COLOR YELLOW; URINE GLUCOSE (UA) NEGATIVE (NEGATIVE); URINE KETONE NEGATIVE (NEGATIVE); URINE LEUK ESTERASE NEGATIVE (NEGATIVE); URINE NITRITE NEGATIVE (NEGATIVE); URINE PROTEIN NEGATIVE (NEGATIVE); URINE RBC 57 /uL (0-23.9); URINE UROBILINOGEN 0.2 mg/dL (0.2-1.0); URINE WBC 8 /uL (0-25.8)
[2022-07-27 12:49] LABS: INR 1.06 (0.83-1.09); PROTHROMBIN TIME (PATIENT) 12.3 SEC (9.7-13.0)
[2022-07-27 12:52] LABS: ACTIVATED PTT 32.4 SECONDS (25.2-36.5)
[2022-07-27 13:07] LABS: CALCIUM 8.2 mg/dL (8.5-10.1)
[2022-07-27 13:08] LABS: ALBUMIN 4.2 g/dl (3.4-5.0)
[2022-07-27 13:11] LABS: CREATININE 0.7 mg/dL (0.55-1.3)
[2022-07-27 13:12] LABS: BILIRUBIN,TOTAL 0.4 mg/dL (0.2-1); TOT PROT 7.2 g/dl (6.4-8.2)
== END 2022-07-27 15:05 | disposition left against medical advice (07) ==
LOC: JER 10:41
DX: R00.0 Tachycardia, unspecified (principal); I10 Essential (primary) hypertension; R07.89 Other chest pain
CPT/HCPCS: 0241U-QW; 36415; 71045-TC-FY; 80053; 81003; 83690; 83735; 84439; 84443; 84484; 85025; 85379; 85610; 85730; 87086; 93005; 93010; 99285-25